=== PATIENT | male | born 1945 | race Caucasian/White ===

== ENCOUNTER → 2016-10-24 | Outpatient (CLI) | payer OTHER | END | disposition home or self-care (01) | LOC: C.LABSPEC 12:21 | PROVIDERS: ATTEND Internal Medicine | DX: Z12.11 Encounter for screening for malignant neoplasm of colon (principal) ==

== ENCOUNTER → 2016-12-21 | Outpatient (CLI) | payer OTHER | END | disposition home or self-care (01) | LOC: C.LABSPEC 14:38 | PROVIDERS: ATTEND Internal Medicine | DX: R73.9 Hyperglycemia, unspecified (principal) ==

== ENCOUNTER → 2016-12-21 | Outpatient (CLI) | payer OTHER ==
[2016-12-21 13:29] LABS: ESTIMATED AVERAGE GLUCOSE 126 mg/dl; HA1C FLAG Normal (Normal)
[2016-12-21 14:06] LABS: CHLORIDE 104 mmol/L (98-107); POTASSIUM 4.2 mmol/L (3.5-5.1); SODIUM 138 mmol/L (136-145)
[2016-12-21 14:12] LABS: CALCIUM 9.6 mg/dl (8.5-10.1)
[2016-12-21 14:51] LABS: BLOOD UREA NITROGEN 26 mg/dl (7-18); BUN/CREATININE RATIO 23.7 (10-20); CARBON DIOXIDE 22 mmol/L (21-32); CHOLESTEROL 140 mg/dl (0-200); GLUCOSE 113 mg/dl (70-99); TRIGLYCERIDES 210 mg/dl (0-150); VERY LOW DENSITY LIPOPROT CALC 42 mg/dl
[2016-12-21 15:01] LABS: CHOLESTEROL/HDL RATIO 4.8; HDL CHOLESTEROL 29 mg/dl
== END | disposition home or self-care (01) ==
LOC: C.LABSPEC 12:09
PROVIDERS: ATTEND Internal Medicine
DX: I10 Essential (primary) hypertension (principal); E78.5 Hyperlipidemia, unspecified; R73.9 Hyperglycemia, unspecified

== ENCOUNTER → 2017-06-23 | Outpatient (CLI) | payer OTHER ==
[2017-06-23 13:23] LABS: ESTIMATED AVERAGE GLUCOSE 117 mg/dl; HA1C FLAG Normal (Normal)
[2017-06-23 13:31] LABS: BLOOD UREA NITROGEN 19 mg/dl (7-18); BUN/CREATININE RATIO 16.9 (10-20); CALCIUM 9.2 mg/dl (8.5-10.1); CARBON DIOXIDE 29 mmol/L (21-32); CHLORIDE 102 mmol/L (98-107); CREATININE 1.13 mg/dl (0.60-1.40); GLUCOSE 113 mg/dl (70-99); SODIUM 139 mmol/L (136-145)
[2017-06-23 13:40] LABS: CHOLESTEROL 117 mg/dl (0-200); CHOLESTEROL/HDL RATIO 4.3; HDL CHOLESTEROL 27 mg/dl; TRIGLYCERIDES 212 mg/dl (0-150); VERY LOW DENSITY LIPOPROT CALC 42 mg/dl
== END | disposition home or self-care (01) ==
LOC: C.LABSPEC 12:52
PROVIDERS: ATTEND Internal Medicine
DX: I10 Essential (primary) hypertension (principal); E78.5 Hyperlipidemia, unspecified; R73.9 Hyperglycemia, unspecified

== ENCOUNTER → 2017-12-09 | Outpatient (CLI) | payer OTHER ==
[~2017-12-09] MED LIST: CIPR1TAB11 PO; DOXY100C76 PO; LABE300T PO; MORP-157 PO; OXYC1TAB3 PO; marinol; ondansetron
--- NOTE | 2017-12-09 14:44 | DIAGNOSTIC IMAGING REPORT ---
L VENOUS DOPP LOWER EXT UNILAT CLINICAL HISTORY: LT LOWER LIMB SWELLING/PAIN pain. Edema. TECHNIQUE: Venous Doppler COMPARISON STUDY: None FINDINGS: Findings consistent with acute deep venous thrombosis from the thigh to the lower leg. Thrombus is identified within the superficial femoral vein, posterior tibial vein, as well as anterior tibial and peroneal veins. Compressibility is incomplete. IMPRESSION: Acute deep venous thrombosis of the mid to lower thigh and lower leg. The above report was generated using voice recognition software. It may contain grammatical, syntax or spelling errors. Electronically signed by: Bill Fetlon M.D. 12/09/2017 2:42 PM Dictated Date/Time: 12/09/2017 2:41 PM
== END | disposition home or self-care (01) ==
LOC: C.ULTR 13:38
PROVIDERS: ATTEND Internal Medicine Hematology & Oncology
DX: I82.402 Acute embolism and thrombosis of unspecified deep veins of left lower extremity (principal); M79.89 Other specified soft tissue disorders; R29.898 Other symptoms and signs involving the musculoskeletal system

== ENCOUNTER → 2017-12-10 | Outpatient (CLI) | payer OTHER ==
[~2017-12-10] MED LIST changes: +RIVA1TAB PO
--- NOTE | 2017-12-10 09:12 | DIAGNOSTIC IMAGING REPORT ---
CT OF THE ABDOMEN AND PELVIS WITH CONTRAST CLINICAL HISTORY: Gastroesophageal junction cancer. COMPARISON STUDY: None. TECHNIQUE: Following IV administration of 93 mL of Optiray-320, axial images of the abdomen and pelvis were obtained from the lung bases to the proximal femurs. Images were reviewed in the axial, sagittal, and coronal planes. IV contrast was administered without complication. A dose lowering technique was utilized adhering to the principles of ALARA. Oral contrast was administered. FINDINGS: The chest CT will be reported separately. Note is made of multiple right-sided pulmonary emboli which are better depicted on the chest CT. There is mild distal esophageal wall thickening. No enlarged abdominal or pelvic lymph nodes are present. No liver lesion is identified. There is probable fatty infiltration of the liver. A few right renal cysts are noted. The right adrenal vein, spleen and pancreas are unremarkable. Two left adrenal nodules measure up to 1.4 cm. There is extensive diverticulosis evidence for acute diverticulitis. There is no bowel obstruction. Small gallstones are noted within the gallbladder without evidence for acute cholecystitis. No suspicious osseous lesions are identified within the lumbar spine or pelvis by CT. IMPRESSION: 1. No evidence for metastatic disease within the abdomen or pelvis. 2. Mild distal esophageal wall thickening which may reflect the primary tumor. 3. Multiple right-sided pulmonary emboli which are better depicted on the chest CT. Findings discussed with Dr. Rene at time of dictation. 4. Cholelithiasis. Electronically signed by: Vikram Vega M.D. 12/10/2017 9:10 AM Dictated Date/Time: 12/10/2017 8:49 AM
--- NOTE | 2017-12-10 09:35 | DIAGNOSTIC IMAGING REPORT ---
CT SCAN OF THE CHEST WITH IV CONTRAST CLINICAL HISTORY: Cancer of the gastroesophageal junction. COMPARISON STUDY: No priors. TECHNIQUE: Following the IV administration of 93 cc of Optiray 320, CT scan of the thorax was performed from the thoracic inlet to the upper abdomen. Images are reviewed in the axial, sagittal, and coronal planes. IV contrast was administered without complication. A dose lowering technique was utilized adhering to the principles of ALARA. CT DOSE: 1752.42 mGy.cm additional FINDINGS: Thyroid: Imaged portions of the thyroid gland are normal in size and attenuation. Thoracic aorta: There is atherosclerotic calcification of the thoracic aorta, which is normal in caliber and demonstrates standard 3-vessel arch anatomy. No dissection is seen. Pulmonary vasculature: There are filling defects identified within the right lower lobe pulmonary artery extending end to segmental and subsegmental branches consistent with pulmonary emboli. Pulmonary emboli are also seen within the right middle lobe pulmonary arteries as well as segmental and subsegmental branches of the right upper lobe pulmonary artery. Segmental and subsegmental pulmonary emboli are also seen in the left lower lobe pulmonary artery. Heart: The heart is enlarged and without pericardial effusion. There is calcification of the coronary arteries and the aortic valve leaflets. Lungs and pleural spaces: There is diffuse subpleural reticulation with foci of honeycombing and chronic appearing interstitial thickening. The appearance suggests interstitial lung disease. There may be superimposed emphysematous change. The trachea and central airways are clear. No airspace consolidation is seen typical for pneumonia and there is no pleural effusion. Numerous calcified granulomas are observed. No concerning pulmonary lesion is identified. Lower neck: There is supraclavicular lymphadenopathy. The largest of the clavicular node is seen on the left on image #61 and measures 2.4 x 2.1 cm. A left cervical chain node on image #8 measures 2.1 x 1.5 cm. Mediastinum: There is left axillary adenopathy. A left axillary node on image #65 measures 4.1 x 1.9 cm. A node in the right peritracheal region on image #109 measures 2.7 x 1.8 cm. Rosa: Clear. Axillae: There is no axillary lymphadenopathy. There are bilateral subpectoral lymph nodes. A right subpectoral node on image #84 measures 2.2 x 2.5 cm and a left subpectoral node on image #60 measures 2.5 x 1.4 cm. Upper abdomen: There is wall thickening and heterogeneity seen involving the distal esophagus and at the gastroesophageal junction. There is an indeterminant 1.5 cm left adrenal nodule seen on image #325. Findings suggest hepatic steatosis. Skeletal structures: The skeletal structures are osteopenic. Postoperative change and extensive permeative bony destruction is partially visualized in the left humeral shaft. There is a large soft tissue mass partially visualized in the left upper extremity around the destructive osseous lesion. This measures at least 9 cm maximum diameter. There is a large heterogeneous mass largely replacing the manubrium of the sternum. This is seen on image #95 and measures at least 7.2 x 10.6 cm in maximum transaxial diameter. This extends into the anterior mediastinum and approaches the dermal surface in the anterior upper chest. IMPRESSION: 1. Bilateral pulmonary emboli as above. 2. There are bony metastatic lesions with large associated soft tissue components identified in the manubrium of the sternum and the left humerus. 3. There is metastatic lower cervical, supraclavicular, left axillary, bilateral subpectoral, and mediastinal lymphadenopathy. 4. There is mild wall thickening and irregularity seen involving the distal esophagus and the gastroesophageal junction, likely representing the reported history of a gastroesophageal junction tumor. 5. An indeterminant left adrenal nodule is nonspecific and metastatic disease is not excluded. 6. There is evidence of chronic interstitial lung disease, with possible superimposed emphysematous change. 7. There is no airspace consolidation or pleural effusion. 8. Cardiomegaly. 9. Additional findings as above. Electronically signed by: Balbir Chapin M.D. 12/10/2017 9:34 AM Dictated Date/Time: 12/10/2017 9:12 AM
== END | disposition home or self-care (01) ==
LOC: C.CTS 07:55
PROVIDERS: ATTEND Internal Medicine Hematology & Oncology
DX: C16.0 Malignant neoplasm of cardia (principal); C79.51 Secondary malignant neoplasm of bone; C77.0 Secondary and unspecified malignant neoplasm of lymph nodes of head, face and neck; C77.3 Secondary and unspecified malignant neoplasm of axilla and upper limb lymph nodes; I26.99 Other pulmonary embolism without acute cor pulmonale; R59.0 Localized enlarged lymph nodes; E27.8 Other specified disorders of adrenal gland; I51.7 Cardiomegaly; K80.20 Calculus of gallbladder without cholecystitis without obstruction

== ENCOUNTER → 2017-12-24 | Outpatient (CLI) | payer OTHER ==
[~2017-12-24] MED LIST changes: -CIPR1TAB11 PO; -DOXY100C76 PO; +ONDA4TAB46 PO; -ondansetron
[2017-12-24 11:50] LABS: BASO % 0.2 %; BASO ABS # 0.01 K/uL (0-0.2); EOS % 0.4 %; EOS ABS # 0.02 K/uL (0-0.5); HEMATOCRIT 31.5 % (42-52); HEMOGLOBIN 10.6 g/dL (14.0-18.0); IG# 0.01 K/uL (0.00-0.02); LYMPH % 12.8 %; LYMPH ABS # 0.59 K/uL (1.2-3.4); MEAN CELL VOLUME 93.2 fL (80-100); MEAN CORPUSCULAR HEMOGLOBIN 31.4 pg (25-34); MEAN CORPUSCULAR HGB CONC 33.7 g/dl (32-36); MEAN PLATELET VOLUME 9.3 fL (7.4-10.4); MONO % 6.1 %; MONO ABS # 0.28 K/uL (0.11-0.59); NEUT % 80.3 %; NEUT ABS # 3.69 K/uL (1.4-6.5); PLATELET COUNT 173 K/uL (130-400); RED CELL DISTRIBUTION WIDTH CV 14.3 % (11.5-14.5); RED CELL DISTRIBUTION WIDTH SD 48.1 fL (36.4-46.3)
[2017-12-24 12:16] LABS: ALBUMIN 2.6 gm/dl (3.4-5.0); ALKALINE PHOSPHATASE 229 U/L (45-117); ALT/SGPT 17 U/L (12-78); AST/SGOT 43 U/L (15-37); BLOOD UREA NITROGEN 31 mg/dl (7-18); CALCIUM 10.6 mg/dl (8.5-10.1); CARBON DIOXIDE 25 mmol/L (21-32); CREATININE 1.03 mg/dl (0.60-1.40); GLUCOSE 96 mg/dl (70-99); POTASSIUM 4.6 mmol/L (3.5-5.1); SODIUM 131 mmol/L (136-145); TOTAL PROTEIN 6.2 gm/dl (6.4-8.2)
== END | disposition home or self-care (01) ==
LOC: C.LABSPEC 11:23
PROVIDERS: ATTEND Internal Medicine Hematology & Oncology
DX: C16.9 Malignant neoplasm of stomach, unspecified (principal)

== ENCOUNTER → 2017-12-31 | Outpatient (CLI) | payer OTHER ==
[~2017-12-31] MED LIST changes: +FENT25DI10 TD
--- NOTE | 2017-12-31 11:52 | DIAGNOSTIC IMAGING REPORT ---
L VENOUS DOPPLER UPR EXT UNIL CLINICAL HISTORY: 72 years-old Male presenting with LT ARM SWELLING. TECHNIQUE: Real-time grayscale and color and spectral Doppler ultrasound imaging of the veins of the left upper extremity was performed. Compression and augmentation were also utilized. COMPARISON: None. FINDINGS: Left: Internal jugular vein: Patent. Subclavian vein: Patent. Axillary vein: Patent. Brachial vein: Not visualized. Basilic vein (superficial): Not visualized. Cephalic vein (superficial): Not visualized. Radial vein: Patent. Ulnar vein: Patent. Other: 17.2 x 5.2 cm heterogeneously hypoechoic masslike region with internal color Doppler flow. Subcutaneous edema noted in the forearm. This mass is located in the upper outer arm. Enlarged 2.3 x 1.9 x 1.0 cm globular appearing left supraclavicular lymph node. This does not have convincingly benign morphology. And additional enlarged lymph node is also noted in the left axilla. IMPRESSION: 1. Soft tissue mass in the upper outer arm, which is at the level of recent pathologic fracture of the mid diaphysis of the humerus. Soft tissue extension of a neoplastic process is suspected. 2. Limited evaluation for venous thrombosis secondary to the mass. Visualized veins patent. 3. Suspicious left axillary and left supraclavicular lymphadenopathy, concerning for metastatic disease. Electronically signed by: Zeferino Braga M.D. 12/31/2017 11:50 AM Dictated Date/Time: 12/31/2017 11:45 AM
== END | disposition home or self-care (01) ==
LOC: C.ULTR 10:16
PROVIDERS: ATTEND Orthopaedic Surgery Sports Medicine
DX: M79.89 Other specified soft tissue disorders (principal); R59.0 Localized enlarged lymph nodes